=== PATIENT | female | born 1940 | race Caucasian/White ===

== ENCOUNTER → 2016-12-03 | Outpatient (REF) | payer MEDICARE, OTHER ==
[2016-12-03 09:59] LABS: PLATELET COUNT 86 10^3uL (150-450); WHITE BLOOD COUNT 25.83 10^3uL (4.0-11.0)
[2016-12-03 10:02] LABS: MEAN CORPUSCULAR HEMOGLOBIN 32.6 PG (26.0-34.0); MEAN CORPUSCULAR VOLUME 99 FL (80-100)
[2016-12-03 10:07] LABS: BAND NEUTROPHILS % 1 % (0-6); EOSINOPHILS % 1 % (0-4); LYMPHOCYTES # 7.5 #; MONOCYTES % 8 % (3-11); SEGMENTED NEUTROPHILS % 14 % (51-67)
[2016-12-03 10:08] LABS: RBC MORPH NORMAL (NORMAL); TOTAL CELLS COUNTED 100
== END ==
LOC: LAB 09:38
PROVIDERS: ATTEND Family Medicine
DX: C91.10 Chronic lymphocytic leukemia of B-cell type not having achieved remission (principal)
CPT/HCPCS: 85025

== ENCOUNTER → 2016-12-11 | Outpatient (REF) | payer MEDICARE, OTHER ==
[2016-12-11 14:19] LABS: MEAN CORPUSCULAR HGB CONC 34.5 g/dL (31.0-37.0); MEAN PLATELET VOLUME 13.2 FL (6.0-9.5); PLATELET COUNT 92 10^3uL (150-450); WHITE BLOOD COUNT 23.93 10^3uL (4.0-11.0)
[2016-12-11 14:26] LABS: MEAN CORPUSCULAR HEMOGLOBIN 33.8 PG (26.0-34.0); MEAN CORPUSCULAR VOLUME 98 FL (80-100)
[2016-12-11 14:32] LABS: ALBUMIN 4.2 g/dL (3.4-5.0); ANION GAP 13.2 MEQ/L (3-15); CALCULATED IONIZED CALCIUM 4.5 mg/dL (3.8-4.6); TOTAL PROTEIN 6.4 g/dL (6.4-8.5)
[2016-12-11 14:37] LABS: BAND NEUTROPHILS % 0 % (0-6); EOSINOPHILS % 0 % (0-4); LYMPHOCYTES # 19.4 #; MONOCYTES # 0.5 #; MONOCYTES % 2 % (3-11); RBC MORPH NORMAL (NORMAL); SEGMENTED NEUTROPHILS % 17 % (51-67); TOTAL CELLS COUNTED 100
== END ==
LOC: LAB 13:21
PROVIDERS: ATTEND Internal Medicine Hematology & Oncology
DX: C91.10 Chronic lymphocytic leukemia of B-cell type not having achieved remission (principal)
CPT/HCPCS: 80053; 83010; 83615; 85025